=== PATIENT | female | born 1980 | race Caucasian/White ===

== ENCOUNTER 2019-04-20 19:40 | Emergency (ER) | payer OTHER ==
[~2019-04-20] VITALS: Ht 157.5 cm; Wt 72.7 kg
[2019-04-20 19:44] VITALS: Ht 157.5 cm; Wt 72.7 kg
[2019-04-20] MEDS ORDERED: HYDROCODON-ACE1 EAC7 PO (20:44)
[2019-04-20 21:03] VITALS: BP 161/93
== END 2019-04-20 21:03 | disposition home or self-care (01) ==
LOC: D.ER 19:40
DX: S82.832A Other fracture of upper and lower end of left fibula, initial encounter for closed fracture (principal); X50.1XXA Overexertion from prolonged static or awkward postures, initial encounter